=== PATIENT | male | born 2000 | race Two or more races ===

== ENCOUNTER 2020-06-10 10:54 | Emergency (ER) | payer OTHER ==
[~2020-06-10] VITALS: Ht 167.6 cm; Wt 63.5 kg
--- NOTE | 2020-06-10 11:03 | NUR ---
ED Nurse Note: Pt walked into ED for bite lower R buttocks for 5 days. Pain on bite is 7/10. Pt is alert adn orientedx4, ambulatory. Pt bite is red, not indurated. Pt has been seen by MARIE.
[2020-06-10 11:05] VITALS: BP 122/68
--- NOTE | 2020-06-10 11:52 | Emergency Room Report ---
History of Present Illness General Chief Complaint: Skin Rash/Abscess Source: Patient (Radha Chavez DO) Present Illness HPI This patient states that he has had a painful region on his right buttock for the past 5 days. He states he has had subjective fever. He denies chills. He denies nausea or vomiting. He admits that it has been difficult to have bowel movements secondary to significant pain in his rectum. He denies anal sexual activity or penetration. He denies recent illness. He has no other complaints. 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 (Radha Chavez DO) Patient History Past Medical History: none, see triage record Social History: Denies: smoking, alcohol use, drug use Reviewed Nursing Documentation: PMH: Agreed; PSxH: Agreed (Radha Chavez DO) Nursing Documentation-PMH Past Medical History: No Stated History (Radha Chavez DO) Review of Systems All Other Systems: negative except mentioned in HPI (Radha Chavez DO) Physical Exam Vital Signs Date Time Temp Pulse Resp B/P (MAP) Pulse Ox O2 Delivery O2 Flow Rate FiO2 06/10/20 10:55 97.0 109 16 125/67 (86) 100 Room Air Sp02 EP Interpretation: reviewed, normal General Appearance: no apparent distress, alert, GCS 15, non-toxic Head: normocephalic, atraumatic Eyes: bilateral eye normal inspection, bilateral eye PERRL ENT: hearing grossly normal, normal pharynx, no angioedema, normal voice Neck: normal inspection, full range of motion Respiratory: no respiratory distress, no retraction, no accessory muscle use, speaking full sentences Cardiovascular #1: no edema, tachycardia Gastrointestinal: normal bowel sounds, non tender, soft, non-distended, no guarding, no rebound Rectal: tenderness - Patient unable to tolerate rectal exam secondary to pain. Large indurated, firm mass in R. buttock ([id number]) Musculoskeletal: back normal, normal range of motion, calf tenderness, gait/station normal, non-tender Neurologic: alert, motor strength/tone normal, oriented x3, sensory intact, responsive, speech normal Psychiatric: judgement/insight normal, memory normal, mood/affect normal, no suicidal/homicidal ideation Skin: normal color (Radha Chavez DO) Medical Decision Making Diagnostic Impression: Primary Impression: Perianal abscess ER Course This patient is found to have a perianal abscess. The patient was given IV fluids, analgesia and IV antibiotics. General surgery was consulted on this patient and felt that this would require surgical incision and drainage. The patient's insurance requested his transfer to [facility]. The patient is stable for transfer. This patient was evaluated in the context of the global COVID-19 pandemic, which necessitated consideration that the patient might be at risk for infection with the [id number] virus that causes COVID-19. Institutional protocols and algorithms that pertain to the evaluation of patients at risk for COVID-19 and the state of rapid change based on information released by multiple regulatory bodies including the CDC and federal and state organizations. These policies and algorithms were followed during the patient's care in the ED. Laboratory Tests Test 06/10/20 11:57 White Blood Count 14.6 K/UL (4.8-10.8) H Red Blood Count 5.37 M/UL (4.70-6.10) Hemoglobin 15.8 G/DL (14.2-18.0) Hematocrit 47.6 % (42.0-52.0) Mean Corpuscular Volume 89 FL (80-99) Mean Corpuscular Hemoglobin 29.4 PG (27.0-31.0) Mean Corpuscular Hemoglobin Concent 33.2 G/DL (32.0-36.0) Red Cell Distribution Width 11.4 % (11.6-14.8) L Platelet Count 304 K/UL (150-450) Mean Platelet Volume 6.0 FL (6.5-10.1) L Neutrophils (%) (Auto) 81.5 % (45.0-75.0) H Lymphocytes (%) (Auto) 7.1 % (20.0-45.0) L Monocytes (%) (Auto) 9.3 % (1.0-10.0) Eosinophils (%) (Auto) 0.6 % (0.0-3.0) Basophils (%) (Auto) 1.5 % (0.0-2.0) Sodium Level 144 MMOL/L (136-145) Potassium Level 4.2 MMOL/L (3.5-5.1) Chloride Level 104 MMOL/L (98-107) Carbon Dioxide Level 28 MMOL/L (21-32) Anion Gap 12 mmol/L (5-15) Blood Urea Nitrogen 13 mg/dL (7-18) Creatinine 1.0 MG/DL (0.55-1.30) Estimated Glomerular Filtration Rate > 60 mL/min (>60) Glucose Level 93 MG/DL (74-106) Calcium Level 9.3 MG/DL (8.5-10.1) Total Bilirubin 0.5 MG/DL (0.2-1.0) Aspartate Amino Transferase (AST) 16 U/L (15-37) Alanine Aminotransferase (ALT) 49 U/L (12-78) Alkaline Phosphatase 71 U/L (46-116) Total Protein 8.9 G/DL (6.4-8.2) H Albumin 4.2 G/DL (3.4-5.0) Globulin 4.7 g/dL Albumin/Globulin Ratio 0.9 (1.0-2.7) L (Radha Chavez DO) ER Course Please see above note. Discussed with Dr. Raines at [facility] who accepts the patient in transfer. Patient given Toradol for pain. IV hydration continued. Repeat analgesia as transfer delay. Dr. Mcmahon examined patient and suggests this be done in OR. Laboratory Tests Test 06/10/20 11:57 White Blood Count 14.6 K/UL (4.8-10.8) H Red Blood Count 5.37 M/UL (4.70-6.10) Hemoglobin 15.8 G/DL (14.2-18.0) Hematocrit 47.6 % (42.0-52.0) Mean Corpuscular Volume 89 FL (80-99) Mean Corpuscular Hemoglobin 29.4 PG (27.0-31.0) Mean Corpuscular Hemoglobin Concent 33.2 G/DL (32.0-36.0) Red Cell Distribution Width 11.4 % (11.6-14.8) L Platelet Count 304 K/UL (150-450) Mean Platelet Volume 6.0 FL (6.5-10.1) L Neutrophils (%) (Auto) 81.5 % (45.0-75.0) H Lymphocytes (%) (Auto) 7.1 % (20.0-45.0) L Monocytes (%) (Auto) 9.3 % (1.0-10.0) Eosinophils (%) (Auto) 0.6 % (0.0-3.0) Basophils (%) (Auto) 1.5 % (0.0-2.0) Sodium Level 144 MMOL/L (136-145) Potassium Level 4.2 MMOL/L (3.5-5.1) Chloride Level 104 MMOL/L (98-107) Carbon Dioxide Level 28 MMOL/L (21-32) Anion Gap 12 mmol/L (5-15) Blood Urea Nitrogen 13 mg/dL (7-18) Creatinine 1.0 MG/DL (0.55-1.30) Estimated Glomerular Filtration Rate > 60 mL/min (>60) Glucose Level 93 MG/DL (74-106) Calcium Level 9.3 MG/DL (8.5-10.1) Total Bilirubin 0.5 MG/DL (0.2-1.0) Aspartate Amino Transferase (AST) 16 U/L (15-37) Alanine Aminotransferase (ALT) 49 U/L (12-78) Alkaline Phosphatase 71 U/L (46-116) Total Protein 8.9 G/DL (6.4-8.2) H Albumin 4.2 G/DL (3.4-5.0) Globulin 4.7 g/dL Albumin/Globulin Ratio 0.9 (1.0-2.7) L (Maynor Mayo MD) CT/MRI/US Diagnostic Results CT/MRI/US Diagnostic Results : Imaging Test Ordered: CT pelvis Impression IMPRESSION: RIGHT PERIANAL ABSCESS APPROXIMATELY 3.8 X 2.9 CM. LINGULAR GRANULOMA. PUNCTATE LEFT RENAL STONE. NO HYDRONEPHROSIS. (Benjamin Chaveza M. DO) CT/MRI/US Diagnostic Results : Imaging Test Ordered: Abdomen and pelvis Impression RIGHT PERIANAL ABSCESS APPROXIMATELY 3.8 X 2.9 CM. LINGULAR GRANULOMA. PUNCTATE LEFT RENAL STONE. NO HYDRONEPHROSIS. (Maynor Mayo MD) Last Vital Signs Date Time Temp Pulse Resp B/P (MAP) Pulse Ox O2 Delivery O2 Flow Rate FiO2 06/10/20 11:05 97.0 82 18 122/68 98 Room Air (Radha Chavez ) Last Vital Signs Date Time Temp Pulse Resp B/P (MAP) Pulse Ox O2 Delivery O2 Flow Rate FiO2 06/10/20 20:25 98.4 83 16 129/64 100 Room Air Status: improved (Maynor Mayo MD) Disposition: SHORT-TERM HOSP Condition: Stable Referrals: NON PHYSICIAN (PCP) Radha Chavez DO Jun 10, 2020 11:52 aMynor Mayo MD Jun 10, 2020 16:06
[2020-06-10] MEDS ORDERED: cefOXitin Sod 1 GM in D5W 55 ML IVPB ONE (12:00)
[2020-06-10] MEDS ORDERED: cefOXitin 1gm Inj ONE (12:00)
--- NOTE | 2020-06-10 12:18 | NUR ---
ED Nurse Note: Contacted doctor of pharmacy 2x regarding meds not verified for patient (NS and mefoxin).
[2020-06-10 12:25] LABS: BASOPHILS % (AUTO) 1.5 % (0.0-2.0); EOSINOPHILS % (AUTO) 0.6 % (0.0-3.0); HEMATOCRIT 47.6 % (42.0-52.0); HEMOGLOBIN 15.8 G/DL (14.2-18.0); LYMPHOCYTES % (AUTO) 7.1 % (20.0-45.0); MEAN CORPUSCULAR VOLUME 89 FL (80-99); MONOCYTES % (AUTO) 9.3 % (1.0-10.0); NEUTROPHILS % (AUTO) 81.5 % (45.0-75.0); PLATELET COUNT 304 K/UL (150-450); RED BLOOD COUNT 5.37 M/UL (4.70-6.10); RED CELL DISTRIBUTION WIDTH 11.4 % (11.6-14.8); WHITE BLOOD COUNT 14.6 K/UL (4.8-10.8)
[2020-06-10 12:36] LABS: ALANINE AMINOTRANSFERASE 49 U/L (12-78); ALBUMIN 4.2 G/DL (3.4-5.0); ALBUMIN/GLOBULIN RATIO 0.9 (1.0-2.7); ALKALINE PHOSPHATASE 71 U/L (46-116); ANION GAP 12 mmol/L (5-15); ASPARTATE AMINO TRANSFERASE 16 U/L (15-37); BILIRUBIN,TOTAL 0.5 MG/DL (0.2-1.0); BLOOD UREA NITROGEN 13 mg/dL (7-18); CALCIUM 9.3 MG/DL (8.5-10.1); CARBON DIOXIDE 28 MMOL/L (21-32); CHLORIDE 104 MMOL/L (98-107); POTASSIUM 4.2 MMOL/L (3.5-5.1); SODIUM 144 MMOL/L (136-145)
[2020-06-10 13:50] VITALS: BP 126/65
--- NOTE | 2020-06-10 14:01 | Diagnostic Imaging Report ---
EXAM: CT CT Abdomen Pelvis w/Contrast INDICATION: Pelvic and rectal pain. Fever. Evaluate for possible perianal abscess. COMPARISON: None TECHNIQUE: Axial images were obtained through the abdomen pelvis with intravenous contrast. Sagittal and coronal reformats are generated. All CT scans at this facility are performed using dose modulation techniques as appropriate to a performed exam including the following: automated exposure control with adjustment of the mA and/or kV according to patient size. RADIATION DOSE: CTDIvol: 4.9 mGy DLP: 320.1 mGy-cm Dose information generated by the CT scanner is available in PACS. FINDINGS: There is a calcified granuloma in the lingula. Lung bases otherwise clear. The liver and spleen are homogeneous. Gallbladder is without sludge or stone and there is no wall thickening. The pancreas is unremarkable. Adrenals are normal in morphology. There is a tiny punctate stone lower pole left kidney. No hydronephrosis seen bilaterally Small bowel loops are nondistended. Colon is nondistended with average amount of stool. The appendix is normal. There is no free fluid or free air. No pathologic adenopathy demonstrated. Urinary bladder appears unremarkable. There is a right perianal fluid collection with slight rim enhancement and surrounding inflammation consistent with a right perianal abscess. Size approximately 3.8 x 2.9 cm. There are a few mildly prominent lymph nodes in the right inguinal region likely reactive. IMPRESSION: RIGHT PERIANAL ABSCESS APPROXIMATELY 3.8 X 2.9 CM. LINGULAR GRANULOMA. PUNCTATE LEFT RENAL STONE. NO HYDRONEPHROSIS.
[2020-06-10] MEDS ORDERED: NO HOME MEDS (14:56)
[2020-06-10] MEDS ORDERED: Ketorolac 30mg Inj IV ONE ×2 (15:00→19:30)
[2020-06-10] MEDS ORDERED: Morphine Sulfate 4mg/ml Inj (IV USE ONLY) IVP ONE (16:15)
[2020-06-10 16:35] VITALS: BP 130/66
[2020-06-10 18:24] VITALS: BP 125/68
--- NOTE | 2020-06-10 18:43 | NUR ---
ED Nurse Note: Report given to Vida DYE at [facility].
--- NOTE | 2020-06-10 19:30 | NUR ---
ED Nurse Note: Recieved report to resume care, pt sitting in room, iv site patent, family at bedside with pt, pt waiting for hospital transfer for right buttocks abcess, denies pain or any distress, will resume care and prepare for transfer.
[2020-06-10 20:15] VITALS: BP 129/64
[2020-06-10 20:25] VITALS: BP 129/64
--- NOTE | 2020-06-10 20:25 | NUR ---
ER DISCHARGE NOTE: Patient is cleared to be transferred per ERMD, pt is aox4, on room air, with stable vital signs. pt was able to verbalize understanding of transfer, pt is able to ambulate with steady gait. pt took all belongings.pt picked up by [facility] ambulance rig #[id number], all forms given to Rhett chan, rodrigo noted during transfer.
== END 2020-06-10 20:25 | disposition short-term general hospital (02) ==
LOC: OBS 11:15 → EMR 20:25
DX: K61.0 Anal abscess (principal); N20.0 Calculus of kidney; L92.8 Other granulomatous disorders of the skin and subcutaneous tissue
CPT/HCPCS: 36415; 74177; 80053; 85025; 96361; 96365; 96375; 96376; 99285; J0694; J1885; J2405; J7030; Q9965